=== PATIENT | male | born 2000 | race African-American/Black ===

== ENCOUNTER 2021-06-13 18:22 | Emergency (ER) | payer MEDICAID ==
[2021-06-13] MEDS ORDERED: Sodium Chloride 0.9% 10 ML Syringe FLUSH PRN (18:36)
[2021-06-13] MEDS ORDERED: Lactated Ringers 1,000 ML IV ONE ×2 (18:39→19:23)
[2021-06-13 19:20] LABS: CHLORIDE,CL 103 mmol/L (98-107); SODIUM,NA 138 mmol/L (136-145)
--- NOTE | 2021-06-13 19:21 | EDM.PDOC ---
ED HPI GENERAL MEDICAL PROBLEM - General Stated Complaint: CRAMPING UP Time Seen by Provider: 06/13/21 18:35 Source of Information: Reports: Patient History Limitations: Reports: No Limitations - History of Present Illness INITIAL COMMENTS - FREE TEXT/NARRATIVE: Pt. presents to ER with complaints of leg cramps. Pt. states that he developed them after playing football today for [employer]. He states that after the discomfort started, he drank 2 bottles of gatorade and 2 bottles of water and states that the discomfort is resolving. Denies any fever or chills. No chest pain or shortness of breath. No nausea, vomiting, or diarrhea. He denies any recent illness. Pt. denies any history of previous heat related injury in the past. Ambient temp. during the game today approx. 80 degrees. Onset: Today Location: Reports: Generalized Bilateral Lower Leg Pain Score (Numeric/FACES): 3 - Related Data Allergies Allergy/AdvReac Type Severity Reaction Status Date / Time No Known Allergies Allergy Verified 06/13/21 18:36 Home Meds: Home Meds . [No Known Home Meds] 06/13/21 [History] ED ROS GENERAL - Review of Systems Review Of Systems: See Below Constitutional: Reports: No Symptoms. Denies: Fever, Chills HEENT: Reports: No Symptoms Respiratory: Reports: No Symptoms Cardiovascular: Reports: No Symptoms Endocrine: Reports: No Symptoms GI/Abdominal: Reports: No Symptoms : Reports: No Symptoms Musculoskeletal: Reports: Leg Pain, Muscle Pain Skin: Reports: No Symptoms Neurological: Reports: No Symptoms Psychiatric: Reports: No Symptoms Hematologic/Lymphatic: Reports: No Symptoms Immunologic: Reports: No Symptoms ED EXAM, GENERAL - Physical Exam Exam: See Below Exam Limited By: No Limitations General Appearance: Alert, WD/WN, No Apparent Distress Head: Atraumatic, Normocephalic Neck: Normal Inspection, Supple, Non-Tender, Full Range of Motion Respiratory/Chest: No Respiratory Distress, Lungs Clear, Normal Breath Sounds, No Accessory Muscle Use, Chest Non-Tender Cardiovascular: Normal Peripheral Pulses, Regular Rate, Rhythm, No Edema, No JVD Peripheral Pulses: 4+: Radial (L) GI/Abdominal: Soft, Non-Tender, No Distention, No Mass (Male) Exam: Deferred Rectal (Males) Exam: Deferred Back Exam: Normal Inspection, Full Range of Motion Extremities: Normal Inspection, Normal Range of Motion, Non-Tender, No Pedal Edema, Normal Capillary Refill Neurological: Alert, Oriented, CN II-XII Intact, Normal Cognition, Normal Gait, Normal Reflexes, No Motor/Sensory Deficits Psychiatric: Normal Affect, Normal Mood Skin Exam: Warm, Dry, Intact, Normal Color Lymphatic: No Adenopathy Course - Vital Signs Last Recorded V/S: Last Vital Signs Temp 36.3 C 06/13/21 20:12 Pulse 105 H 06/13/21 20:12 Resp 16 06/13/21 20:12 BP 116/63 06/13/21 20:12 Pulse Ox 98 06/13/21 20:12 - Orders/Labs/Meds Orders: Active Orders 24 hr Category Date Time Status Sodium Chloride 0.9% [Saline Flush] Med 06/13/21 18:36 Active 10 ml FLUSH ASDIRECTED PRN Peripheral IV Insertion Adult [OM.PC] Routine Oth 06/13/21 18:36 Ordered Medication Orders Sodium Chloride (Sodium Chloride 0.9% 10 Ml Syringe) 10 ml FLUSH ASDIRECTED PRN PRN Reason: Keep Vein Open Labs: Laboratory Tests 06/13/21 06/13/21 06/13/21 Range/Units 18:45 18:45 18:49 WBC 10.6 H (4.0-10.0) x10^3/uL RBC 4.75 (4.5-6.0) x10^6/uL Hgb 14.1 (14.0-18.0) g/dL Hct 39.4 L (40.0-52.0) % MCV 82.9 (78.0-93.0) fL MCH 29.7 (26.0-32.0) pg MCHC 35.8 (32.0-36.0) g/dL RDW Coeff of Cameron 12.6 (10.0-15.0) % Plt Count 329 (130-400) x10^3/uL Immature Gran % (Auto) 0.10 (0.00-0.43) % Neut % (Auto) 71.7 (50.0-80.0) % Lymph % (Auto) 22.0 L (25.0-50.0) % Glades % (Auto) 5.1 (2.0-11.0) % Eos % (Auto) 0.7 (0.0-4.0) % Baso % (Auto) 0.4 (0.2-1.2) % Neut # (Auto) 7.6 (1.8-7.7) x10^3/uL Lymph # (Auto) 2.3 (1.0-4.8) x10^3/uL Glades # (Auto) 0.5 (0.0-0.8) x10^3/uL Eos # (Auto) 0.1 (0.0-0.5) x10^3/uL Baso # (Auto) 0.0 (0.0-0.2) x10^3/uL Immature Gran # (Auto) 0.01 (0.00-0.07) x10^3/uL Sodium 138 (136-145) mmol/L Potassium 4.0 (3.5-5.1) mmol/L Chloride 103 (98-107) mmol/L Carbon Dioxide 24 (21-32) mmol/L Anion Gap 15.0 (5-15) mmol/L BUN 13 (7-18) mg/dL Creatinine 1.5 H (0.70-1.30) mg/dL Est Cr Clr Drug Dosing TNP Estimated GFR (MDRD) 59 Glucose 99 (70-99) mg/dL Lactic Acid 2.2 H* (0.4-2.0) mmol/L Calcium 9.1 (8.5-10.1) mg/dL Corrected Calcium 9.0 (8.5-10.1) mg/dL Phosphorus 4.1 (2.6-4.7) mg/dL Magnesium 1.6 L (1.8-2.4) mg/dL Total Bilirubin 0.5 (0.2-1.0) mg/dL AST 32 (15-37) U/L ALT 51 (16-63) U/L Alkaline Phosphatase 95 (46-116) U/L Creatine Kinase 601 H* (39-308) U/L C-Reactive Protein 0.6 (<=0.9) mg/dL Total Protein 7.7 (6.4-8.2) g/dL Albumin 4.1 (3.4-5.0) g/dL Globulin 3.6 Albumin/Globulin Ratio 1.14 Meds: Medications Generic Name Dose Route Start Last Admin Trade Name Rishi PRN Reason Stop Dose Admin Sodium Chloride 10 ml 06/13/21 18:36 Sodium Chloride 0.9% 10 Ml Syringe FLUSH ASDIRECTED PRN Keep Vein Open Discontinued Medications Generic Name Dose Route Start Last Admin Trade Name Rishi PRN Reason Stop Dose Admin Lactated Ringer's 1,000 mls @ 1,000 mls/hr 06/13/21 18:39 Ringers, Lactated IV 06/13/21 19:38 ONETIME ONE Lactated Ringer's 1,000 mls @ 1,000 mls/hr 06/13/21 19:23 Ringers, Lactated IV 06/13/21 20:22 ONETIME ONE - Re-Assessments/Exams Free Text/Narrative Re-Assessment/Exam: Pt. given 2 liters of lactated ringers IV today. Pt. reported feeling much improved and is interested in being discharged [facility]. Departure - Departure Time of Disposition: 20:45 Disposition: Home, Self-Care 01 Clinical Impression: Heat exhaustion, Rhabdomyolysis - Discharge Information Instructions: Heat Exhaustion, Preventing Heat Exhaustion, Adult Referrals: PCP,None [Primary Care Provider] - Forms: ED Department Discharge Additional Instructions: Home to rest. Continue drinking plenty of fluids. Return to ER if you have any chest pain, shortness of breath, or lightheadedness. Recheck in clinic in 7-10 days. No strenuous activity this week. Sepsis Event Note (ED) - Focused Exam Vital Signs: Vital Signs Temp Pulse Resp BP Pulse Ox 06/13/21 20:12 36.3 C 105 H 16 116/63 98 - Problem List Review Problem List Initiated/Reviewed/Updated: Yes - My Orders Last 24 Hours: My Active Orders 06/13/21 18:36 Sodium Chloride 0.9% [Saline Flush] 10 ml FLUSH ASDIRECTED PRN Peripheral IV Insertion Adult [OM.PC] Routine - Assessment/Plan Last 24 Hours: My Active Orders 06/13/21 18:36 Sodium Chloride 0.9% [Saline Flush] 10 ml FLUSH ASDIRECTED PRN Peripheral IV Insertion Adult [OM.PC] Routine Plan: Home to rest. Continue drinking plenty of fluids. Return to ER if you have any chest pain, shortness of breath, or lightheadedness. Recheck in clinic in 7-10 days. No strenuous activity this week.
== END 2021-06-13 20:20 | disposition home or self-care (01) ==
LOC: VM.ED 18:22
DX: T67.5XXA Heat exhaustion, unspecified, initial encounter (principal); M62.82 Rhabdomyolysis
CPT/HCPCS: 36415; 80053; 82550; 83605; 83735; 84100; 85025; 86140; 99283; J7120